=== PATIENT | female | born 1965 | race Caucasian/White ===

== ENCOUNTER → 2021-09-06 | Outpatient (CLI) | payer MEDICARE, OTHER ==
[~2021-09-06] MED LIST: LIDOCAINE 1% INJ 20 ML VIAL INJ ONE
--- NOTE | 2021-09-06 09:50 | Diagnostic Imaging Report ---
PROCEDURE: US Thyroid. TECHNIQUE: Multiple real-time grayscale images were obtained of the thyroid in various projections. INDICATION: Thyroid gland nodule. Right lobe of the thyroid gland measures 4.9 x 1.9 x 1.5 cm with an approximately 0.9 x 0.6 cm hypoechoic nodule in the central portion of the right gland which demonstrates central echogenic focus. There is no associated hyperemia or posterior acoustic shadow. Left lobe of thyroid gland was not imaged. IMPRESSION: Nonspecific 0.9 x 0.6 cm hypoechoic right lobe thyroid nodule with central increased echogenicity. Overall this has a benign appearance although clinical correlation is recommended. Short-term follow-up study could be performed in 6 months to document ongoing stability. Dictated by: Dictated on workstation # [id number]
== END ==
LOC: RAD 08:47
PROVIDERS: ATTEND Otolaryngology Otolaryngology/Facial Plastic Surgery
DX: E04.1 Nontoxic single thyroid nodule (principal)
CPT/HCPCS: 76536